=== PATIENT | male | born 2000 | race Caucasian/White ===

== ENCOUNTER 2022-05-03 05:00 | Emergency (ER) | payer MEDICAID, OTHER ==
[~2022-05-03] VITALS: Ht 180.3 cm; Wt 72.6 kg
[2022-05-03 05:05] VITALS: BP 121/77
[2022-05-03 05:24] VITALS: BP 121/77
--- NOTE | 2022-05-03 05:24 | NUR ---
PT IS HERE FOR HAVING LACERATION ON THE LEFT FOREHEAD WITH ACTIVELY BLEEDING. ROOM AIR AND AMBULATORY. PT IS NOT HAVING
--- NOTE | 2022-05-03 05:26 | NUR ---
PT NOT HAVING ANY RESPIRATORY DISTRESS
[2022-05-03] MEDS ORDERED: LIDOCAINE/EPI MPF 1%1:200000 30 ML VIAL INJ ONE (05:30)
--- NOTE | 2022-05-03 05:30 | NUR ---
CALL TO [facility], THEY WILL DISPATCH AN OFFICER HERE
[2022-05-03] MEDS ORDERED: LIDOCAINE/EPI MPF 2%1:200000 10 ML VIAL INJ ONE (05:35)
[2022-05-03] MEDS ORDERED: LIDOCAINE/EPI 2% 1:100000 20 ML VIAL INJ ONE (05:36)
--- NOTE | 2022-05-03 05:50 | NUR ---
[facility] HERE
[2022-05-03] MEDS ORDERED: BACTO TP (05:54)
[2022-05-03] MEDS ORDERED: ACET-10509 PO (05:54)
--- NOTE | 2022-05-03 05:54 | NUR ---
[facility] AT BEDSIDE
--- NOTE | 2022-05-03 06:05 | NUR ---
PT ELOPED AT THIS TIME
== END 2022-05-03 06:05 | disposition left against medical advice (07) ==
LOC: MED 05:00
DX: S01.81XA Laceration without foreign body of other part of head, initial encounter (principal); R55 Syncope and collapse; Z79.899 Other long term (current) drug therapy; Y04.2XXA Assault by strike against or bumped into by another person, initial encounter; Y93.89 Activity, other specified; Y92.89 Other specified places as the place of occurrence of the external cause; Y99.8 Other external cause status
CPT/HCPCS: 12011; 70450; 99284; J2001